=== PATIENT | male | born 1995 | race Caucasian/White ===

== ENCOUNTER → 2020-08-02 | Outpatient (CLI) | payer OTHER ==
--- NOTE | 2020-08-02 09:39 | KCIC ---
Examination: MRI of the right knee without contrast HISTORY: History of right knee pain COMPARISON: None available TECHNIQUE: Multiplanar, multisequence MR imaging of the right knee was performed without contrast FINDINGS: The anterior cruciate ligament, posterior cruciate ligament appears intact. There is a [address] ructure extending anteriorly from the anterior horn of the lateral meniscus probably a small menisca l cyst. The extensor mechanism is intact. The medial collateral ligament, lateral collateral ligament complex including the fibular collateral ligament, biceps femoris tendon, popliteus tendon appears intact. T he medial retinaculum, lateral retinaculum appears intact. Minimal knee joint effusion with trace popliteal cyst. The visualized cartilage in the medial, latera l compartment, patellofemoral grossly appears unremarkable. IMPRESSION: 1. Small 2 mm cystic structure extending anteriorly from the anterior horn of the lateral meniscus p robably a small meniscal cyst. 2. Minimal knee joint effusion with trace popliteal cyst. Electronically signed by: Chuy Christianson MD (08/02/2020 9:36 AM) [id number]
== END ==
LOC: KCIC MRI 07:55
PROVIDERS: ATTEND Orthopaedic Surgery
DX: M25.461 Effusion, right knee (principal); M71.21 Synovial cyst of popliteal space [Baker], right knee; M23.006 Cystic meniscus, unspecified meniscus, right knee
CPT/HCPCS: 73721